=== PATIENT | female | born 1995 | race Caucasian/White ===

== ENCOUNTER 2016-12-06 18:05 | Emergency (ER) | payer BC, OTHER ==
[2016-12-06] MEDS ORDERED: SODIUM CHLORIDE 0.9% 1,000 ML IV STA (18:42)
--- NOTE | 2016-12-06 18:46 | ED ---
Female Urogenital HPI - General Source: patient, RN notes reviewed Mode of arrival: ambulatory Limitations: no limitations - History of Present Illness Last Menstrual Period: 11/22/16 <Tori Aguilar - Last Filed: 12/06/16 19:39> <Rolly Ceja - Last Filed: 12/06/16 20:44> - General Chief complaint: Vaginal Bleeding Stated complaint: Poss Miscarriage Time Seen by Provider: 12/06/16 18:39 - History of Present Illness Initial comments: 21-year-old female presents emergency department chief complaint vaginal bleeding. Patient states that she started bleeding about 5 days after her normal period and has been bleeding on and off since. Patient states is not very heavy but strain. Patient states she is concerned that maybe possibly she was . Patient states she's had no nausea vomiting with this. Patient does not think that she was she does not know. Patient states she's having some cramping. Patient states is experiencing stringy clots as well. Patient denies any lightheadedness or dizziness but states that she just feels off. Patient states she was concerned due to her symptoms that she thought that she should be evaluated.Patient denies any recent fever, chills, shortness of breath, chest pain, back pain, nausea vomiting, numbness or tingling, dysuria or hematuria, constipation or diarrhea, headaches or visual changes, or any other current symptoms. (Tori Aguilar) - Related Data Home Medications Medication Instructions Recorded Confirmed Lo Loestrin Fe 1-20 1 tab PO DAILY 12/06/16 12/06/16 Allergies Allergy/AdvReac Type Severity Reaction Status Date / Time No Known Allergies Allergy Verified 12/06/16 18:48 Review of Systems ROS Other: All systems not noted in ROS Statement are negative. <Tori Aguilar - Last Filed: 12/06/16 19:39> ROS Other: All systems not noted in ROS Statement are negative. <Rolly Ceja - Last Filed: 12/06/16 20:44> ROS Statement: Those systems with pertinent positive or pertinent negative responses have been documented in the HPI. Past Medical History Past Medical History: No Reported History History of Any Multi-Drug Resistant Organisms: None Reported Past Surgical History: No Surgical Hx Reported Past Psychological History: Anxiety, Depression Smoking Status: Never smoker Past Alcohol Use History: None Reported Past Drug Use History: None Reported <Tori Aguilar - Last Filed: 12/06/16 19:39> General Exam Limitations: no limitations General appearance: alert, in no apparent distress Neck exam: Present: normal inspection. Absent: tenderness, meningismus, lymphadenopathy Respiratory exam: Present: normal lung sounds bilaterally. Absent: respiratory distress, wheezes, rales, rhonchi, stridor Cardiovascular Exam: Present: regular rate, normal rhythm, normal heart sounds. Absent: systolic murmur, diastolic murmur, rubs, gallop, clicks GI/Abdominal exam: Present: soft, normal bowel sounds. Absent: distended, tenderness, guarding, rebound, rigid External exam: Present: normal external exam Speculum exam: Present: normal speculum exam By manual exam: Present: adnexal tenderness (Minimal left-sided) Extremities exam: Present: normal inspection Back exam: Present: normal inspection Neurological exam: Present: alert, oriented X3 Psychiatric exam: Present: normal affect, normal mood Skin exam: Present: warm, dry, intact, normal color. Absent: rash <Tori Aguilar - Last Filed: 12/06/16 19:39> Medical Decision Making <Tori Aguilar - Last Filed: 12/06/16 19:39> - Lab Data Result diagrams: 12/06/16 19:45 12/06/16 19:45 <Rolly Ceja - Last Filed: 12/06/16 20:44> - Medical Decision Making 21-year-old male presents emergency department with a chief complaint of vaginal bleeding and abdominal cramping with concern for possible . ( Tori Aguilar) Medical decision-making. The patient's labs show white count of 8.4 hemoglobin 14 hematocrit of 41 with a potassium 4.0. BUN 10 creatinine 0.55 GFR greater than 60. Glucose 102. Her serum is less than 2.5 therefore negative. Urine is clean. I discussed with the patient that she's having delayed menstrual cycle. Advised to follow-up with family physician as needed or SENIOR EXECUTIVE ASSISTANT if she has 1. ( Rolly Ceja) - Lab Data Lab Results 12/06/16 12/06/16 12/06/16 Range/Units 19:05 19:25 19:45 WBC (4.0-11.0) k/uL RBC (3.80-5.40) m/uL Hgb (11.4-16.0) gm/dL Hct (34.0-46.0) % MCV (80.0-100.0) fL MCH (25.0-35.0) pg MCHC (31.0-37.0) g/dL RDW (11.5-15.5) % Plt Count (150-450) k/uL Neutrophils % % Lymphocytes % % Monocytes % % Eosinophils % % Basophils % % Neutrophils # (1.3-7.7) k/uL Lymphocytes # (1.0-4.8) k/uL Monocytes # (0-1.0) k/uL Eosinophils # (0-0.7) k/uL Basophils # (0-0.2) k/uL Sodium 142 (137-145) mmol/L Potassium 4.0 (3.5-5.1) mmol/L Chloride 107 (98-107) mmol/L Carbon Dioxide 25 (22-30) mmol/L Anion Gap 10 mmol/L BUN 10 (7-17) mg/dL Creatinine 0.55 (0.52-1.04) mg/dL Est GFR (MDRD) Af Amer >60 (>60 ml/min/1.73 sqM) Est GFR (MDRD) Non-Af >60 (>60 ml/min/1.73 sqM) Glucose 102 H (74-99) mg/dL Calcium 9.2 (8.4-10.2) mg/dL Total Bilirubin 0.5 (0.2-1.3) mg/dL AST 27 (14-36) U/L ALT 26 (9-52) U/L Alkaline Phosphatase 85 (38-126) U/L Total Protein 7.2 (6.3-8.2) g/dL Albumin 4.1 (3.5-5.0) g/dL HCG, Quant <2.4 mIU/mL Urine Color Yellow Urine Appearance Clear (Clear) Urine pH 6.5 (5.0-8.0) Ur Specific [place] 1.020 (1.001-1.035) Urine Protein Negative (Negative) Urine Glucose (UA) Negative (Negative) Urine Ketones Negative (Negative) Urine Blood Negative (Negative) Urine Nitrite Negative (Negative) Urine Bilirubin Negative (Negative) Urine Urobilinogen <2.0 (<2.0) mg/dL Ur Leukocyte Esterase Moderate H (Negative) Urine RBC 1 (0-5) /hpf Urine WBC 2 (0-5) /hpf Ur Squamous Epith Cells 6 H (0-4) /hpf Amorphous Sediment Rare H (None) /hpf Urine Bacteria Rare H (None) /hpf Urine Mucus Few H (None) /hpf Trichomonas Ag (Rapid) Negative (Negative) 12/06/16 Range/Units 19:45 WBC 8.4 (4.0-11.0) k/uL RBC 4.97 (3.80-5.40) m/uL Hgb 14.3 (11.4-16.0) gm/dL Hct 41.5 (34.0-46.0) % MCV 83.5 (80.0-100.0) fL MCH 28.7 (25.0-35.0) pg MCHC 34.4 (31.0-37.0) g/dL RDW 13.6 (11.5-15.5) % Plt Count 205 (150-450) k/uL Neutrophils % 56 % Lymphocytes % 31 % Monocytes % 4 % Eosinophils % 5 % Basophils % 1 % Neutrophils # 4.7 (1.3-7.7) k/uL Lymphocytes # 2.6 (1.0-4.8) k/uL Monocytes # 0.4 (0-1.0) k/uL Eosinophils # 0.5 (0-0.7) k/uL Basophils # 0.0 (0-0.2) k/uL Sodium (137-145) mmol/L Potassium (3.5-5.1) mmol/L Chloride (98-107) mmol/L Carbon Dioxide (22-30) mmol/L Anion Gap mmol/L BUN (7-17) mg/dL Creatinine (0.52-1.04) mg/dL Est GFR (MDRD) Af Amer (>60 ml/min/1.73 sqM) Est GFR (MDRD) Non-Af (>60 ml/min/1.73 sqM) Glucose (74-99) mg/dL Calcium (8.4-10.2) mg/dL Total Bilirubin (0.2-1.3) mg/dL AST (14-36) U/L ALT (9-52) U/L Alkaline Phosphatase (38-126) U/L Total Protein (6.3-8.2) g/dL Albumin (3.5-5.0) g/dL HCG, Quant mIU/mL Urine Color Urine Appearance (Clear) Urine pH (5.0-8.0) Ur Specific [place] (1.001-1.035) Urine Protein (Negative) Urine Glucose (UA) (Negative) Urine Ketones (Negative) Urine Blood (Negative) Urine Nitrite (Negative) Urine Bilirubin (Negative) Urine Urobilinogen (<2.0) mg/dL Ur Leukocyte Esterase (Negative) Urine RBC (0-5) /hpf Urine WBC (0-5) /hpf Ur Squamous Epith Cells (0-4) /hpf Amorphous Sediment (None) /hpf Urine Bacteria (None) /hpf Urine Mucus (None) /hpf Trichomonas Ag (Rapid) (Negative) Disposition <Tori Aguilar - Last Filed: 12/06/16 19:39> Time of Disposition: 20:44 <Rolly Ceja - Last Filed: 12/06/16 20:44> Clinical Impression: Dysfunctional uterine bleeding Disposition: HOME SELF-CARE Condition: Fair Instructions: Menstruation (ED) Additional Instructions: follow-up with your family physician Referrals: Myesha Villagomez DO [Primary Care Provider] - 1-2 days Opal Painter MD [STAFF PHYSICIAN] - 1-2 days
[2016-12-06] MEDS ORDERED: HYDROmorphone 1 MG/ML 1 ML SYRINGE IVP STA (18:51)
[2016-12-06 19:29] LABS: Amorphous Sediment,Urine Rare /hpf; Appearance,Urine Clear (Clear); Bacteria,Urine Rare /hpf; Bilirubin,Urine Negative (Negative); Glucose,Urine (UA) Negative (Negative); Ketones,Urine Negative (Negative); Leukocyte Esterase,Urine Moderate (Negative); Mucus,Urine Few /hpf; Nitrite,Urine Negative (Negative); PH, Urine 6.5 (5.0-8.0); Particle Count 6502; Protein,Urine Negative (Negative); RBC,Urine 1 /hpf (0-5); Squamous Epithelial Cell,Urine 6 /hpf (0-4); UA Billing (MACRO vs. MICRO) MICRO; Urobilinogen,Urine <2.0 mg/dL (<2.0); WBC,Urine 2 /hpf (0-5)
--- NOTE | 2016-12-06 19:45 | US ---
EXAMINATION TYPE: US transvaginal DATE OF EXAM: 12/06/2016 7:38 PM COMPARISON: NONE CLINICAL HISTORY: Pain. 3 week long periods TECHNIQUE: Transvaginal (TV) with color Doppler. Date of LMP: Unknown EXAM MEASUREMENTS: Uterus: 7.0 x 4.0 x 4.3 cm Endometrial Stripe: 0.5 cm Right Ovary: 3.3 x 2.4 x 2.5 cm Left Ovary: 3.2 x 1.2 x 1.4 cm 1. Uterus: Retroverted Nabothian cyst visualized in cervix 2. Endometrium: wnl 3. Right Ovary: wnl 4. Left Ovary: wnl Spectral, color and waveform doppler imaging shows good arterial and venous flow within the ovaries ; there is no evidence for ovarian torsion. 5. Bilateral Adnexa: wnl 6. Posterior cul-de-sac: wnl There is normal arterial waveform in the ovarian arteries on the color Doppler images. IMPRESSION: Negative transvaginal pelvic ultrasound. No evidence of ovarian torsion seen on the color Doppler images.
[2016-12-06 20:03] LABS: Basophils % (A) 1 %; CH 29.4; CHCM 35.4; Eosinophils # (A) 0.5 k/uL (0-0.7); Eosinophils % (A) 5 %; HCT 41.5 % (34.0-46.0); HDW 3.16; HGB 14.3 gm/dL (11.4-16.0); Luc # (Auto) 0.22; Luc % (Auto) 3; Lymphocytes # (A) 2.6 k/uL (1.0-4.8); Lymphocytes % (A) 31 %; MCH 28.7 pg (25.0-35.0); MCHC 34.4 g/dL (31.0-37.0); MCV 83.5 fL (80.0-100.0); Mean Platelet Volume 7.5; Monocytes # (A) 0.4 k/uL (0-1.0); Monocytes % (A) 4 %; Neutrophils # (A) 4.7 k/uL (1.3-7.7); Neutrophils % (A) 56 %; RBC 4.97 m/uL (3.80-5.40); RDW 13.6 % (11.5-15.5); WBC 8.4 k/uL (4.0-11.0); WBC (Perox) 8.12
[2016-12-06 20:19] LABS: ALT 26 U/L (9-52); AST 27 U/L (14-36); Alkaline Phosphatase 85 U/L (38-126); Anion Gap 10 mmol/L; Blood Urea Nitrogen 10 mg/dL (7-17); Calcium 9.2 mg/dL (8.4-10.2); Carbon Dioxide 25 mmol/L (22-30); Chloride 107 mmol/L (98-107); Glucose 102 mg/dL (74-99); Non-African American GFR(MDRD) >60 (>60 ml/min/1.73 sqM); Sodium 142 mmol/L (137-145); Total Bilirubin 0.5 mg/dL (0.2-1.3); Total Protein 7.2 g/dL (6.3-8.2)
[2016-12-06 20:35] LABS: HCG,Quantitative Serum <2.4 mIU/mL
[2016-12-06 21:18] VITALS: BP 107/70; PULSE 88; RESP 16; TEMP 97.7
[2016-12-09] MEDS ORDERED: cefTRIAXone 250 MG VIAL IM STA (09:31)
[2016-12-13] MEDS ORDERED: AZITHROMYCIN 500 MG TAB PO STA (14:56)
== END 2016-12-06 21:18 | disposition home or self-care (01) ==
LOC: EC 18:05
DX: N93.8 Other specified abnormal uterine and vaginal bleeding (principal); Z79.899 Other long term (current) drug therapy
CPT/HCPCS: 36415; 76830; 80053; 81001; 84702; 85025; 86850; 86900; 86901; 87070; 87205; 87491; 87591; 87808; 93975; 96360; 99284

== ENCOUNTER 2023-10-04 06:39 | Emergency (ER) | payer OTHER ==
[2023-10-04 07:06] VITALS: RESP 18; TEMP 98
--- NOTE | 2023-10-04 07:31 | ED ---
Female Urogenital HPI - General Chief complaint: Vaginal Bleeding Stated complaint: vaginal bleeding 6 weeks Time Seen by Provider: 10/04/23 06:57 Source: patient, RN notes reviewed Mode of arrival: ambulatory Limitations: no limitations - History of Present Illness Initial comments: 28-year-old female presents emergency department chief complaint of vaginal bleeding early . Patient is A0 states she is around 6 weeks . States she started having some cramping which she noticed some spotting. States the pain has increased. Patient states she has not been seen by her GAS METER MECHANIC yet. Patient had no prior miscarriages she is O+ blood type. She states she has mild cramping no dysuria no fevers or chills no other complaints. - Related Data Home Medications Medication Instructions Recorded Confirmed Lo Loestrin Fe 1-20 1 tab PO DAILY 12/06/16 12/06/16 Allergies Allergy/AdvReac Type Severity Reaction Status Date / Time No Known Allergies Allergy Verified 10/04/23 06:56 Review of Systems ROS Statement: Those systems with pertinent positive or pertinent negative responses have been documented in the HPI. ROS Other: All systems not noted in ROS Statement are negative. Past Medical History Past Medical History: No Reported History History of Any Multi-Drug Resistant Organisms: None Reported Past Surgical History: No Surgical Hx Reported Past Psychological History: Anxiety, Depression Smoking Status: Never smoker Past Alcohol Use History: None Reported Past Drug Use History: None Reported General Exam Limitations: no limitations General appearance: alert, in no apparent distress Head exam: Present: atraumatic, normocephalic, normal inspection Eye exam: Present: normal appearance, PERRL, EOMI. Absent: scleral icterus, conjunctival injection, periorbital swelling Respiratory exam: Present: normal lung sounds bilaterally. Absent: respiratory distress, wheezes, rales, rhonchi, stridor Cardiovascular Exam: Present: regular rate, normal rhythm, normal heart sounds. Absent: systolic murmur, diastolic murmur, rubs, gallop, clicks GI/Abdominal exam: Present: soft, tenderness, normal bowel sounds. Absent: distended, guarding, rebound, rigid Back exam: Absent: CVA tenderness (R), CVA tenderness (L) Neurological exam: Present: alert Course Vital Signs 10/04/23 10/04/23 06:53 08:58 Temperature 98 F Pulse Rate 73 85 Respiratory 18 18 Rate Blood Pressure 145/86 134/87 O2 Sat by Pulse 98 97 Oximetry Medical Decision Making - Medical Decision Making Was pt. sent in by a medical professional or institution (, FREDIS, COIL MACHINE OPERATOR, urgent care, hospital, or group home...) When possible be specific @ -No Did you speak to anyone other than the patient for history (EMS, parent, family, police, friend...)? What history was obtained from this source @ -No Did you review nursing and triage notes (agree or disagree)? Why? @ -I reviewed and agree with nursing and triage notes Were old charts reviewed (outside hosp., previous admission, EMS record, old EKG, old radiological studies, urgent care reports/EKG's, group home records)? Report findings @ -No old charts were reviewed Differential Diagnosis (chest pain, altered mental status, abdominal pain women, abdominal pain men, vaginal bleeding, weakness, fever, dyspnea, syncope, headache, dizziness, GI bleed, back pain, seizure, CVA, palpatations, mental health, musculoskeletal)? @ -Differential Vaginal Bleeding: Spontaneous , threatened , molar , ectopic , bloody show, incompetent cervix, abruptioplacenta, placenta previa, uterine rupture, dysfunctional uterine bleeding, hemorrhage, uterine fibroids, this is not meant to be an all-inclusive list. EKG interpreted by me (3pts min.). @ -None X-rays interpreted by me (1pt min.). @ -None done CT interpreted by me (1pt min.). @ -None done U/S interpreted by me (1pt. min.). @ -ultra sound does not reveal any intrauterine no gestational sac noted What testing was considered but not performed or refused? (CT, X-rays, U/S, labs)? Why? @ -None What meds were considered but not given or refused? Why? @ -None Did you discuss the management of the patient with other professionals (professionals i.e. FREDIS Anthony, COIL MACHINE OPERATOR, lab, RT, psych nurse, social worker health services, safety risk lead, teacher, hydrological technical officer, caseworker intake)? Give summary @ -No Was smoking cessation discussed for >3mins.? @ -No Was critical care preformed (if so, how long)? @ -No Were there social determinants of health that impacted care today? How? (Homelessness, low income, unemployed, alcoholism, drug addiction, transportation, low edu. Level, literacy, decrease access to med. care, detention, rehab)? @ -No Was there de-escalation of care discussed even if they declined (Discuss DNR or withdrawal of care, Hospice)? DNR status @ -No What co-morbidities impacted this encounter? (DM, HTN, Smoking, COPD, CAD, Cancer, CVA, ARF, Chemo, Hep., AIDS, mental health diagnosis, sleep apnea, morbid obesity)? @ -None Was patient admitted / discharged? Hospital course, mention meds given and route, prescriptions, significant lab abnormalities, going to OR and other pertinent info. @ -Discharged patient will have repeat hCG in 2 days. She is updated on findings of no intrauterine , concerning for threatened miscarriage. She will follow-up with GAS METER MECHANIC she is O+ blood type. Undiagnosed new problem with uncertain prognosis? @ -No Drug Therapy requiring intensive monitoring for toxicity (Heparin, Nitro, Insulin, Cardizem)? @ -No Were any procedures done? @ -No Diagnosis/symptom? @ -Threatened miscarriage Acute, or Chronic, or Acute on Chronic? @ -Acute Uncomplicated (without systemic symptoms) or Complicated (systemic symptoms)? @ -Uncomplicated Side effects of treatment? @ -No Exacerbation, Progression, or Severe Exacerbation? @ -No Poses a threat to life or bodily function? How? (Chest pain, [place], [place], pneumonia, PE, COPD, DKA, ARF, appy, cholecystitis, CVA, Diverticulitis, Homicidal, Suic idal, threat to staff... and all critical care pts) @ -No - Lab Data Result diagrams: 10/04/23 07:20 10/04/23 07:20 Lab Results 10/04/23 10/04/23 10/04/23 Range/Units 07:20 07:20 07:20 WBC 11.2 H (3.8-10.6) k/uL RBC 4.92 (3.80-5.40) m/uL Hgb 14.6 (11.4-16.0) gm/dL Hct 41.9 (34.0-46.0) % MCV 85.1 (80.0-100.0) fL MCH 29.6 (25.0-35.0) pg MCHC 34.7 (31.0-37.0) g/dL RDW 14.1 (11.5-15.5) % Plt Count 192 (150-450) k/uL MPV 9.3 Neutrophils % 70 % Lymphocytes % 22 % Monocytes % 4 % Eosinophils % 3 % Basophils % 1 % Neutrophils # 7.8 H (1.3-7.7) k/uL Lymphocytes # 2.5 (1.0-4.8) k/uL Monocytes # 0.4 (0-1.0) k/uL Eosinophils # 0.3 (0-0.7) k/uL Basophils # 0.1 (0-0.2) k/uL Sodium 139 (137-145) mmol/L Potassium 3.6 (3.5-5.1) mmol/L Chloride 106 (98-107) mmol/L Carbon Dioxide 23 (22-30) mmol/L Anion Gap 10 mmol/L BUN 9 (7-17) mg/dL Creatinine 0.56 (0.52-1.04) mg/dL Est GFR (CKD-EPI)AfAm >90 (>60 ml/min/1.73 sqM) Est GFR (CKD-EPI)NonAf >90 (>60 ml/min/1.73 sqM) Glucose 118 H (74-99) mg/dL Calcium 8.8 (8.4-10.2) mg/dL Total Bilirubin 0.5 (0.2-1.3) mg/dL AST 48 H (14-36) U/L ALT 62 H (4-34) U/L Alkaline Phosphatase 78 (38-126) U/L Total Protein 6.7 (6.3-8.2) g/dL Albumin 4.1 (3.5-5.0) g/dL HCG, Quant 949.9 mIU/mL Urine Color Light Red Urine Appearance Cloudy H (Clear) Urine pH 6.5 (5.0-8.0) Ur Specific [place] 1.023 (1.001-1.035) Urine Protein 1+ H (Negative) Urine Glucose (UA) Negative (Negative) Urine Ketones Negative (Negative) Urine Blood Large H (Negative) Urine Nitrite Negative (Negative) Urine Bilirubin Negative (Negative) Urine Urobilinogen <2.0 (<2.0) mg/dL Ur Leukocyte Esterase Trace H (Negative) Urine RBC >182 H (0-5) /hpf Urine WBC 5 (0-5) /hpf Ur Squamous Epith Cells 17 H (0-4) /hpf Urine Bacteria Few H (None) /hpf Urine Mucus Rare H (None) /hpf Disposition Clinical Impression: Threatened miscarriage in early Disposition: HOME SELF-CARE Condition: Stable Instructions (If sedation given, give patient instructions): Threatened Miscarriage (ED) Additional Instructions: Please return to the Emergency Department if symptoms worsen or any other conc erns. Is patient prescribed a controlled substance at d/c from ED?: No Referrals: Myesha Villagomez DO [REFERRING] - 1-2 days Karoline Boles DO [Doctor of Osteopathic Medicine] - 1-2 days Time of Disposition: 08:37
[2023-10-04 07:45] LABS: Appearance,Urine Cloudy (Clear); Bacteria,Urine Few /hpf; Bilirubin,Urine Negative (Negative); Blood,Urine Large (Negative); Color,Urine Light Red; Glucose,Urine (UA) Negative (Negative); Ketones,Urine Negative (Negative); Leukocyte Esterase,Urine Trace (Negative); Mucus,Urine Rare /hpf; Nitrite,Urine Negative (Negative); PH, Urine 6.5 (5.0-8.0); Protein,Urine 1+ (Negative); RBC,Urine >182 /hpf (0-5); Specific Gravity,Urine 1.023 (1.001-1.035); Squamous Epithelial Cell,Urine 17 /hpf (0-4); Urobilinogen,Urine <2.0 mg/dL (<2.0); WBC,Urine 5 /hpf (0-5)
--- NOTE | 2023-10-04 07:46 | US ---
EXAMINATION TYPE: Transabdominal DATE OF EXAM: 10/04/2023 7:31 AM COMPARISON: NONE CLINICAL INDICATION: Female, 28 years old with history of pain, bleeding; Cramping and heavy bleeding starting this am EXAM PERFORMED: Transvaginal (TV) and Transabdominal (TA) EXAM MEASUREMENTS: GESTATIONAL AGE / DATING Dates by LMP: 08/25/2023 (5 weeks/5 days) EDC: 05/31/2024 MATERNAL ANATOMY Uterus: 11.3 x 5.1 x 5.4 cm Endometrium = 1.8 cm Right Ovary: 2.2 x 3.0 x 1.7 cm Left Ovary: 3.7 x 2.1 x 3.8 cm Post CDS / Adnexa: CDS FF Presence of free fluid: CDS Presence of corpus luteal cyst: Left ovary Presence of subchorionic bleed: no GESTATION / SURVEY CRL: NA ( weeks/ days) MSD: NA ( weeks/ days) Yolk Sac (normal less than 6mm): NA Heart Rate: NA bpm Rhythm: NA IUP: NA Nuchal Translucency 10-14wks (normal less than 3mm): NA Age Appropriate Anatomy Cord Insertion: NA Limbs: NA Calvarium: NA Date of LMP: 08/25/2023 Beta HcG (if available): Labs not ordered yet Not available at this time IMPRESSION: No evidence of intrauterine gestational sac, correlate with B-hCG. If positive, this could represent early , ectopic or spontaneous . Follow up pelvic ultrasound in 5-7 days a nd serial beta hCG studies are recommended.
[2023-10-04 07:54] LABS: ALT 62 U/L (4-34); AST 48 U/L (14-36); African American GFR (CKD) >90 (>60 ml/min/1.73 sqM); Albumin 4.1 g/dL (3.5-5.0); Alkaline Phosphatase 78 U/L (38-126); Anion Gap 10 mmol/L; Blood Urea Nitrogen 9 mg/dL (7-17); Calcium 8.8 mg/dL (8.4-10.2); Carbon Dioxide 23 mmol/L (22-30); Chloride 106 mmol/L (98-107); Glucose 118 mg/dL (74-99); Non-African American GFR(CKD) >90 (>60 ml/min/1.73 sqM); Potassium 3.6 mmol/L (3.5-5.1); Sodium 139 mmol/L (137-145); Total Bilirubin 0.5 mg/dL (0.2-1.3); Total Protein 6.7 g/dL (6.3-8.2)
[2023-10-04 08:10] LABS: HCG,Quantitative Serum 949.9 mIU/mL
[2023-10-04 09:01] VITALS: BP 134/87; PULSE 85
[2023-10-04 09:03] LABS: Basophils # (A) 0.1 k/uL (0-0.2); Basophils % (A) 1 %; Eosinophils # (A) 0.3 k/uL (0-0.7); Eosinophils % (A) 3 %; HCT 41.9 % (34.0-46.0); HGB 14.6 gm/dL (11.4-16.0); Lymphocytes # (A) 2.5 k/uL (1.0-4.8); Lymphocytes % (A) 22 %; MCH 29.6 pg (25.0-35.0); MCHC 34.7 g/dL (31.0-37.0); MCV 85.1 fL (80.0-100.0); Mean Platelet Volume 9.3; Monocytes # (A) 0.4 k/uL (0-1.0); Monocytes % (A) 4 %; Neutrophils # (A) 7.8 k/uL (1.3-7.7); Neutrophils % (A) 70 %; Platelet Count 192 k/uL (150-450); RBC 4.92 m/uL (3.80-5.40); RDW 14.1 % (11.5-15.5); WBC 11.2 k/uL (3.8-10.6)
== END 2023-10-04 08:59 | disposition home or self-care (01) ==
LOC: EC 06:39
DX: O20.0 Threatened abortion (principal); Z3A.01 Less than 8 weeks gestation of pregnancy
CPT/HCPCS: 36415; 76801; 76817; 80053; 81001; 84702; 85025; 99284

== ENCOUNTER → 2023-10-06 | Outpatient (CLI) | payer OTHER | END | disposition home or self-care (01) | LOC: LABWHC1 07:21 | PROVIDERS: ATTEND Physician Assistant | DX: O20.0 Threatened abortion (principal); Z3A.00 Weeks of gestation of pregnancy not specified | CPT/HCPCS: 36415; 84702 ==

== ENCOUNTER 2024-02-24 11:30 | Emergency (ER) | payer OTHER ==
--- NOTE | 2024-03-15 09:44 | US ---
Site ID [facility] Patient Nely Summers ID [id number] EXAMINATION TYPE: US OB <= 14 wk DATE OF EXAM: 02/24/2024 COMPARISON: THIS EXAM WAS READ DURING PACS DOWNTIME, NO PRIORS AVAILABLE. CLINICAL INDICATION: Vag Bleeding LMP 12/31/23 EXAM PERFORMED: Transvaginal (TV) and Transabdominal (TA) EXAM MEASUREMENTS: GESTATIONAL AGE / DATING Dates by Current Scan : (7 weeks/1 days) MATERNAL ANATOMY Uterus: 9.0 x 4.8 x 3.1 cm Right Ovary: 3.1 x 2.6 x 3.7 cm with corpus luteum present Left Ovary: 3.7 x 1.8 x 2.5 Post CDS / Adnexa: None Presence of free fluid: None Presence of corpus luteal cyst: Right Presence of subchorionic bleed: none GESTATION / SURVEY CRL: 1.1 cm (7 weeks 1 day) Yolk Sac (normal less than 6mm): 2 mm Heart Rate: 140 bpm Rhythm: Regular IUP: Viable IUP IMPRESSION: Single live intrauterine gestation ultrasound age 7 weeks 1 day by crown-rump length.
== END 2024-02-24 17:27 | disposition home or self-care (01) ==
LOC: EC 11:30
DX: O20.0 Threatened abortion (principal); Z3A.01 Less than 8 weeks gestation of pregnancy
CPT/HCPCS: 76801; 76817; 99284

== ENCOUNTER 2024-05-17 10:27 | Outpatient (CLI) | payer OTHER ==
[2024-05-17] MEDS ORDERED: ONDANSETRON 4 MG/2 ML VIAL IM STA (11:27)
[2024-05-17] MEDS: LACTATED RINGERS 1,000 ML IV SCH (11:58)
[2024-05-17] MEDS: ACETAMINOPHEN IV (For NPO) 1,000 MG in EMPTY BAG 1 BAG IVPB ONE (12:01)
[2024-05-17] MEDS: ONDANSETRON 4 MG/2 ML VIAL IVP STA (12:05)
[2024-05-17 14:06] LABS: Amorphous Sediment,Urine Occasional /hpf; Appearance,Urine Cloudy (Clear); Bacteria,Urine Rare /hpf; Bilirubin,Urine Negative (Negative); Blood,Urine Negative (Negative); Color,Urine Yellow; Glucose,Urine (UA) Negative (Negative); Ketones,Urine Negative (Negative); Leukocyte Esterase,Urine Negative (Negative); Mucus,Urine Rare /hpf; Nitrite,Urine Negative (Negative); PH, Urine 7.5 (5.0-8.0); Protein,Urine Trace (Negative); RBC,Urine 1 /hpf (0-5); Specific Gravity,Urine 1.027 (1.001-1.035); Squamous Epithelial Cell,Urine 25 /hpf (0-4); WBC,Urine 2 /hpf (0-5)
[2024-05-17 14:50] VITALS: PULSE 92; RESP 16; TEMP 97.7
--- NOTE | 2024-05-19 12:13 | P.MSEPDOC ---
Presenting Problems - Arrival Data Date of Arrival on Unit: 05/17/24 Time of Arrival on Unit: 10:30 Mode of Transport: Ambulatory - Complaint OB-Reason for Admission/Chief Complaint: Acute Nausea/Vomiting, Headache, Other Comment: hx of delivery. pih. 36 and 32 weeks gest. today 18 4/7 weeks. c/o increasing tucker. n/v since monday. not able to keep anything down. Medical History - Information : 4 Para: 2 Term: 0 : 2 Abortions: Spontaneous or Elective: 1 Number of Living Children: 2 - Gestational Age Gestational Age by ZION (wks/days): 19 Weeks and 5 Days Review of Systems - Review of Systems Constitutional: No problems Breast: No problems ENT: No problems Cardiovascular: No problems Respiratory: No problems Gastrointestinal: No problems Genitourinary: No problems Musculoskeletal: No problems Neurological: No problems Skin: No problems Vital Signs - Temperature Temperature: 97.7 F Temperature Source: Temporal Artery Scan - Pulse Apical Pulse Rate: 92 Pulse Assessment Method: Automatic Cuff - Respirations Respiratory Rate: 16 Oxygen Delivery Method: Room Air O2 Sat by Pulse Oximetry: 96 Medical Screen Scoring - Assessment - Baby A Baseline FHR: 160 Heart Rate - NICHD Category: Category I (Normal) Physician Notification - Physician Notified Physician Notified Date: 05/17/24 Physician Notified Time: 13:00 Physician: Karoline Boles New Order Received: Yes - Notification Comment Comment: discharge home with instruction, hx of pih. goes to high risk. Maternal Triage Index - Stat/Priority 1 Stat Priority 1: No - Urgent/Priority 2 Urgent Priority 2: No - Prompt/Priority 3 Prompt Priority 3: No - Non-Urgent/Priority 4 Non-Urgent Priority 4: Yes Criteria Met for Priority 4: na Disposition - Disposition OB Disposition: Discharge to home, Written follow up instructions reviewed Discharge Date: 05/17/24 Discharge Time: 14:30 I agree with the RN Medical Screening Exam: Yes Case reviewed; plan agreed upon as documented in EMR&OBIX.: Yes Diagnosis: RELATED CONDITIONS, UNSPECIFIED, SECOND TRIMESTER
== END 2024-05-17 14:30 | disposition home or self-care (01) ==
LOC: FBPOP 10:27
PROVIDERS: ATTEND Obstetrics & Gynecology Obstetrics
DX: O21.9 Vomiting of pregnancy, unspecified (principal); Z3A.19 19 weeks gestation of pregnancy
CPT/HCPCS: 99215; 96361; 96365; 96375; 81001; J2405; J0131

== ENCOUNTER 2024-07-11 13:41 | Outpatient (CLI) | payer OTHER ==
[2024-07-11 14:49] VITALS: BP 122/75; PULSE 97; RESP 18; TEMP 97.6
== END 2024-07-11 14:30 | disposition home or self-care (01) ==
LOC: FBPOP 13:41
PROVIDERS: ATTEND Obstetrics & Gynecology
DX: Z53.9 Procedure and treatment not carried out, unspecified reason (principal)
CPT/HCPCS: 99213

== ENCOUNTER 2024-09-09 17:03 | Outpatient (CLI) | payer OTHER ==
[2024-09-09 17:57] VITALS: BP 129/79; PULSE 107; RESP 18; TEMP 97.7
--- NOTE | 2024-09-14 00:09 | P.MSEPDOC ---
Presenting Problems - Arrival Data Date of Arrival on Unit: 09/09/24 Time of Arrival on Unit: 17:03 Mode of Transport: Ambulatory - Complaint OB-Reason for Admission/Chief Complaint: Headache, Elevated Blood Pressure, Other Comment: diarrhea Medical History - Information : 3 Para: 2 Term: 0 : 2 Abortions: Spontaneous or Elective: 0 Number of Living Children: 2 - Gestational Age Gestational Age by ZION (wks/days): 36 Weeks and 1 Days - History Complications: Chronic HTN Review of Systems - Review of Systems Constitutional: No problems Breast: No problems ENT: No problems Cardiovascular: No problems Respiratory: No problems Gastrointestinal: Diarrhea Genitourinary: No problems Musculoskeletal: No problems Neurological: No problems Skin: No problems Vital Signs - Temperature Temperature: 97.7 F Temperature Source: Temporal Artery Scan - Pulse Pulse Oximetery Pulse Rate: 107 Pulse Assessment Method: Pulse Oximetry - Respirations Respiratory Rate: 18 Oxygen Delivery Method: Room Air O2 Sat by Pulse Oximetry: 98 - Blood Pressure Right Arm Blood Pressure: 129/79 Blood Pressure Mean: 95 Blood Pressure Source: Automatic Cuff Medical Screen Scoring - Uterine Contractions Intensity: Mild Resting: Soft to palpation - Assessment - Baby A Baseline FHR: 145 Heart Rate - NICHD Category: Category I (Normal) NST: Reactive Physician Notification - Physician Notified Physician Notified Date: 09/09/24 Physician Notified Time: 17:36 Physician: Arden Frausto Order Received: Yes - Notification Comment Comment: Dr. Frausto called, report given on maternal c/o VALDEZ, elevated BP, irregular contractions, and diarrhea today. Pt has a hx of pre-e with her 2 previous pregnancies. Current BPs are 129/79 and 128/78, only symptom is a VALDEZ. Reflexes are 2+, no clonus, no edema. NST is reactive, and only 1 contraction noted on monitor. Per MD, pt probably has a virus and some dehydration which is causing her VALDEZ and contractions. Orders to discharge pt home. Pt is to increase her fluid intake and follow up at her appointment tomorrow. Maternal Triage Index - Maternal Triage Index Presenting for scheduled procedure w/no complaint: No - Stat/Priority 1 Stat Priority 1: No - Urgent/Priority 2 Urgent Priority 2: No - Prompt/Priority 3 Prompt Priority 3: Yes Criteria Met for Priority 3: 36 1/7wks, contractions, diarrhea, VALDEZ, elevated BP at home Disposition - Disposition OB Disposition: Discharge to home Discharge Date: 09/09/24 Discharge Time: 17:50 I agree with the RN Medical Screening Exam: Yes Physician's MSE Comment: I have neither seen nor examined the patient. Case reviewed; plan agreed upon as documented in EMR&OBIX.: Yes Diagnosis: RELATED CONDITIONS, UNSPECIFIED, THIRD TRIMESTER
== END 2024-09-09 17:50 | disposition home or self-care (01) ==
LOC: FBPOP 17:03
PROVIDERS: ATTEND Obstetrics & Gynecology
DX: O26.93 Pregnancy related conditions, unspecified, third trimester (principal); Z3A.36 36 weeks gestation of pregnancy
CPT/HCPCS: 59025; 99213

== ENCOUNTER → 2025-01-29 | Outpatient (CLI) | payer OTHER ==
--- NOTE | 2025-01-29 13:55 | US ---
EXAMINATION TYPE: US abdomen complete DATE OF EXAM: 01/29/2025 COMPARISON: NONE CLINICAL INDICATION: Female, 29 years old with history of R10.32 LLQ PAIN; Pain LLQ TECHNIQUE: Grayscale and color Doppler imaging of the abdomen was performed. FINDINGS: EXAM MEASUREMENTS: Liver Length: 18.3 cm Gallbladder Wall: .2 cm CBD: .5 cm, color Doppler imaging was utilized to isolate the common bile duct for measurement. Spleen: 12.8 cm Right Kidney: 11.2 x 3.9 x 4.8 cm Left Kidney: 12.7 x 5.3 x 4.1 cm [employer] notes: Limited due to body habitus and bowel gas Pancreas: Only a small portion of the pancreatic body is seen. The head and tail are obscured by bow el gas shadowing. Liver: Mildly enlarged with slightly increased echogenicity. No focal lesion seen. Gallbladder: No stones seen Evidence for sonographic Hennessy's sign: No CBD: wnl Spleen: wnl Right Kidney: wnl, No hydronephrosis, calculi or masses seen Left Kidney: wnl, No hydronephrosis, calculi or masses seen Upper IVC: wnl Abd Aorta: wnl IMPRESSION: 1. Mild hepatomegaly at 18.3 cm. There may be mild hepatic steatosis. 2. No gallstones or biliary ductal dilatation. [facility], , 01/29/2025 1:53 PM
--- NOTE | 2025-01-29 14:03 | US ---
EXAMINATION TYPE: US transvaginal DATE OF EXAM: 01/29/2025 COMPARISON: NONE CLINICAL INDICATION: Female, 29 years old with history of R10.32 LLQ PAIN; LLQ pain hx of cysts. Daria ent has IUD TECHNIQUE: Transvaginal (TV). Doppler imaging: Not performed. FINDINGS: EXAM MEASUREMENTS: Uterus: 8.4 x 5.2 x 6.8 cm Endometrial Stripe: Obscured Right Ovary: 3.3 x 2.2 x 2.4 cm Left Ovary: 4.3 x 2.5 x 1.4 cm 1. Uterus: Retroverted. IUD visualized. Appears to be appropriately situated along the uterine cavit y. 2. Endometrium: Obscured by IUD 3. Right Ovary: Anechoic area 1.8 x 1.5 x 1.7 cm 4. Left Ovary: A few follicles are present, largest 1.6 x .1 x 1.0 cm 5. Bilateral Adnexa: wnl 6. Posterior cul-de-sac: Mild cul-de-sac free fluid. IMPRESSION: 1. Retroverted uterus with IUD in place. The IUD largely obscures the endometrial stripe. 2. A 1.8 cm dominant follicle within the right ovary. Follicular change in the left ovary. 3. Mild cul-de-sac free fluid likely physiologic. [facility], , 01/29/2025 2:00 PM
== END | disposition home or self-care (01) ==
LOC: RADUSWWP 12:39
PROVIDERS: ATTEND Family Medicine
DX: R16.0 Hepatomegaly, not elsewhere classified (principal); Z97.5 Presence of (intrauterine) contraceptive device
CPT/HCPCS: 76700; 76830